=== PATIENT | male | born 1985 | race Caucasian/White ===

== ENCOUNTER 2016-09-26 21:27 | Emergency (ER) | payer OTHER ==
[2016-09-26] MEDS ORDERED: KEFLEX500 M1 PO (21:50)
[2016-09-26] MEDS ORDERED: IBUPROFEN800 M1 PO (21:50)
[2016-09-26] MEDS ORDERED: BACTRIM DS TAB1 EACH PO (21:50)
--- NOTE | 2016-09-26 21:50 | ED SKIN/ALLERGY COMPLAINT ---
History of Present Illness General Chief Complaint: Skin Rash/ Abcess Stated Complaint: ABSCESS TO RIGHT GROIN AREA PER PT Source: patient, old records Exam Limitations: no limitations Vital Signs & Intake/Output Vital Signs & Intake/Output Vital Signs Date Time Temp Pulse Resp B/P B/P Pulse O2 O2 Flow FiO2 Mean Ox Delivery Rate 09/26 2146 97.0 92 22 153/64 97 Allergies Coded Allergies: erythromycin base (RASH 09/26/16) Reconcile Medications Cephalexin (Keflex) 500 MG CAPSULE 1 CAP PO TID ABSCESS Ibuprofen 800 MG TABLET 1 TAB PO TID PRN PAIN Sulfamethoxazole/Trimethoprim (Bactrim Ds Tablet) 800 MG-160 MG TABLET 1 TAB PO BID ABSCESS Triage Note: PER PT CYST IN GROIN, PER PT SAW UROLOGIST AND IT IS DRAINING BUT VERY PAINFUL. PER PT DRAINING PUS. Triage Nurses Notes Reviewed? yes Onset: Abrupt Duration: day(s): (1), better, constant Timing: recent history Severity: mild, moderate Severity Numbers: 4 Location: genitalia Possible Factors: no cause identified No Modifying Factors: none Associated Symptoms: DENIES HPI: 31-year-old male with no medical history presents emergency room complaining of a "cyst" to his right groin that he's had for the past one day that has been draining. He states he's had a history of a intermittent cyst to the same exact spot over the past several weeks for which she was seen by urologist and was told it would need to be drained if it got bigger. He states that it went away up until today. He denies fever chills dysuria urgency. He denies noting any hernia or swelling to his scrotum no testicular pain. He denies any other rashes or abscesses to his skin no history of sexual transmitted disease he is not taken anything for his symptoms. No modifying factors or associated symptoms otherwise. (JI SOLITARIO) Past History Travel History Traveled to [place] past 21 day No Medical History Any Pertinent Medical History? none Surgical History Surgical History: none Family History Hx Contributory? No (JI SOLITARIO) Review of Systems Review of Systems Constitutional: Reports: see HPI. All Other Systems: Reviewed and Negative Comments Review of systems: See HPI, All other systems negative. Constitutional, no chills no fever, no malaise HEENT: No visual changes no sore throat no congestion, no ear pain Cardiovascular: No chest pain , no palpitation , no orthopnea Skin: See HPI Respiratory: No dyspnea no cough no sputum no hemoptysis GI: No nausea no vomiting, no diarrhea, : No dysuria No hematuria, Muscle skeletal: No joint pain, no back pain, no neck pain, Neurologic: No numbness no headache Psych: No stress no depression,. Heme/endocrine: No bruising no bleeding Immunology: No lymphadenopathy (JI SOLITARIO) Physical Exam Physical Exam General Appearance: well developed/nourished, no apparent distress, alert, awake Comments: Well-developed well-nourished patient in no apparent distress. HEENT: Atraumatic, extraocular motion intact Neck: Supple, FROM Back: FROM Cardiovascular: Regular rate and rhythms no murmurs rubs or gallops, Respiratory: Chest nontender.There were no bony deformities, no asymmetry. No respiratory distress. Patient speaking in full complete sentences. Breath sounds clear to auscultation bilaterally: NO W/R/R Extremities: full range of motioN abdomen: Soft nontender no rebound or guardingn : There is a open inguinal groin, indurated no fluctuance minimal tenderness to palpation no overlying erythema the rest of the external genitalia are within normal limits Neuro: awake, alert, and oriented to person, place and time. There were no obvious focal neurologic abnormalities. Skin: Warm & dry;No appreciable rash on exposed skin Psych: Mood affect normal, normal memory normal judgment. (JI SOLITARIO) Progress Differential Diagnosis: abscess/cellulitis, contact dermatitis, drug reaction, shingles, syphilis/gonococcemia Plan of Care: Orders Procedure Date/time Status TRUNK AREA CULTURE 09/27 2147 Active Microbiology 09/26 2149 TRUNK: Culture & Sensitivity - RECD 09/26 2149 TRUNK: Gram Stain - RECD Cultures were sent of the already draining wound I advised he follow-up with his urologist prescription for Keflex Bactrim ibuprofen provided answered all their questions see feels comfortable with plan (JI SOLITARIO) Departure Departure Time of Disposition: 2147 Disposition: HOME OR SELF CARE Condition: Stable Clinical Impression Primary Impression: Skin abscess Additional Instructions: KEFLEX AND BACTRIM DIRECTED, SITZ BATHS WITH EPSON SALT. FOLLOW UP WITH YOUR UROLOGIST. IBUPROFEN DIRECTED. RETURN IF YOUR SYMPTOMS WORSEN OR YOU HAVE ANY OTHER CONCERNS Departure Forms: Customer Survey General Discharge Information Prescriptions: Current Visit Scripts Sulfamethoxazole/Trimethoprim (Bactrim Ds Tablet) 1 TAB PO BID #14 TAB Cephalexin (Keflex) 1 CAP PO TID #21 CAP Ibuprofen 1 TAB PO TID PRN PAIN #30 TAB (JI SOLITARIO) PA/HUB CUTTER Co-Sign Statement Statement: ED Attending supervision documentation- [] I saw and evaluated the patient. I have also reviewed all the pertinent lab results and diagnostic results. I agree with the findings and the plan of care as documented in the PA's/HUB CUTTER's documentation. x I have reviewed the ED Record and agree with the PA's/HUB CUTTER's documentation. [] Additions or exceptions (if any) to the PAs/HUB CUTTER's note and plan are summarized below: [] (MARKY MURCIA,AROLDO)
== END 2016-09-26 22:03 ==
LOC: ERH 21:27
DX: L02.214 Cutaneous abscess of groin (principal)
CPT/HCPCS: 87070

== ENCOUNTER 2017-12-28 14:35 | Emergency (ER) | payer SELFPAY ==
[~2017-12-28] VITALS: Ht 172.7 cm; Wt 63.5 kg
[~2017-12-28 14:35] MED LIST: BACTRIM DS TAB1 EACH PO; IBUPROFEN800 M1 PO; KEFLEX500 M1 PO
[2017-12-28 14:38] VITALS: BP 124/78
[2017-12-28] MEDS ORDERED: PERCOCET 5-3251 EACH PO (15:16)
[2017-12-28] MEDS ORDERED: AUGMENTIN 875-1 EACH PO (15:16)
[2017-12-28] MEDS ORDERED: BACTRIM DS TAB1 EACH PO (15:16)
--- NOTE | 2017-12-28 15:16 | ED SKIN/ALLERGY COMPLAINT ---
History of Present Illness General Chief Complaint: Skin Rash/ Abcess Stated Complaint: ? ABCESS Source: patient, family Exam Limitations: no limitations Vital Signs & Intake/Output Vital Signs & Intake/Output Vital Signs Date Time Temp Pulse Resp B/P B/P Pulse O2 O2 Flow FiO2 Mean Ox Delivery Rate 12/28 1531 Room Air 12/28 1438 97.8 80 18 124/78 100 Room Air Allergies Coded Allergies: erythromycin base (PROFUSE VOMITING, SWELLING, SICK 12/28/17) Reconcile Medications Amoxicillin/Potassium Clav (Augmentin 875-125 Tablet) 875 MG-125 MG TABLET 1 TAB PO BID abscess Oxycodone HCl/Acetaminophen (Percocet 5-325 MG Tablet) 5 MG-325 MG TABLET 1 TAB PO 4 TIMES/DAY PRN pain Sulfamethoxazole/Trimethoprim (Bactrim Ds Tablet) 800 MG-160 MG TABLET 1 TAB PO BID abscess Triage Note: PT STATES HE HAS AN ABCESS IN HIS GROIN RIGHT SIDE. Triage Nurses Notes Reviewed? yes Onset: Abrupt Duration: day(s): (2), constant, continues in ED, getting worse Timing: remote history Severity: mild, moderate Severity Numbers: 8 Location: genitalia (rt superior scrotum) Possible Factors: abscess No Modifying Factors: none HPI: 32-year-old male with no past medical history of sensory evaluation of a painful swollen area on his scrotum. Patient reports this isn't present for 2 or 3 days and seems be getting worse. He states that a large amount of purulent discharge came from the area today which prompted him to come in. He denies any trauma to the area. He denies any testicular pain or swelling. No penile discharge no frequency urgency or dysuria. No fevers no abdominal pain no nausea vomiting or diarrhea. Patient reports that several years ago he had a similar problem was seen by a urologist at [facility]. he is not a diabetic. (Srinivas Jacobsen) Past History Travel History Traveled to [place] past 21 day No Medical History Any Pertinent Medical History? see below for history Neurological: NONE EENT: NONE Cardiovascular: NONE Respiratory: NONE Gastrointestinal: NONE Hepatic: NONE Renal: NONE Musculoskeletal: NONE Psychiatric: NONE Endocrine: NONE Surgical History Surgical History: none Psychosocial History What is your primary language Bulgarian Tobacco Use: Current Daily Use Daily Tobacco Use Amount/Type: => 5 Cigarettes daily ETOH Use: occasional use Illicit Drug Use: marijuana Family History Hx Contributory? No (Srinivas Jacobsen) Review of Systems Review of Systems Constitutional: Reports: no symptoms. EENTM: Reports: no symptoms. Respiratory: Reports: no symptoms. Cardiovascular: Reports: no symptoms. GI: Reports: no symptoms. Genitourinary: Reports: no symptoms. Musculoskeletal: Reports: no symptoms. Skin: Reports: see HPI (abscess). Neurological/Psychological: Reports: no symptoms. Hematologic/Endocrine: Reports: no symptoms. Immunologic/Allergic: Reports: no symptoms. All Other Systems: Reviewed and Negative (Srinivas Jacobsen) Physical Exam Physical Exam General Appearance: well developed/nourished, no apparent distress, alert, awake , anxious Head: atraumatic, normal appearance Eyes: Bilateral: normal appearance, EOMI. Ears, Nose, Throat: hearing grossly normal Neck: normal inspection, supple, full range of motion Respiratory: normal breath sounds, chest non-tender, no respiratory distress, lungs clear Cardiovascular: regular rate/rhythm Gastrointestinal: soft, non-tender Back: normal inspection, normal range of motion Extremities: normal inspection, normal range of motion, no edema Neurologic/Psych: no motor/sensory deficits, awake, alert, oriented x 3, normal gait Skin: intact, normal color, warm/dry Skin Problem Location: rt superior scrotum Skin Problem Character: abcess Comments: Male genitalia: There is a 1.5 cm diameter area of induration located at the superior aspect of the right hemiscrotum. There is no testicular involvement. No testicular pain or swelling. No high riding or horizontal testicle. There is no surrounding erythema. There is a central open wound with a small amount of purulent/serosanguineous drainage. No focal fluctuant area. No inguinal lymph nodes. No penile lesions. No crepitus. No necrotic tissue (Srinivas Jacobsen) Progress Differential Diagnosis: abscess/cellulitis, scrotal abscess, cellulitis, Breann's gangrene, necrotizing fasciitis, testicular torsion Plan of Care: Orders Procedure Date/time Status EXTREMETIES CULTURE 12/28 1517 Active Microbiology 12/28 1514 EXTREMITIE: Culture & Sensitivity - RECD 12/28 1514 EXTREMITIE: Gram Stain - RECD Patient is here with a scrotal abscess. There does not appear to be any testicular involvement. Patient is afebrile appears clinically well he's not a diabetic. There is no crepitus. The areas cleaned with Betadine 1% lidocaine without epi was used for local pain control. 11 blade used to open the area of induration. Serosanguineous discharge was expressed. Culture was obtained. Sterile dressing applied. Patient was medicated with Percocet. He'll be covered with Augmentin and Bactrim. Discussed with patient about the importance of very close follow-up. Advised him to return to the emergency Department in 2 days or be seen by urology in 2 days. Apply warm compresses change dressing daily. Return immediately with worsening pain swelling fever or spreading redness or any other concerns. Patient understands the discharge instructions he agrees the plan (Srinivas Jacobsen) Departure Departure Disposition: HOME OR SELF CARE Condition: Stable Clinical Impression Primary Impression: Scrotal abscess Referrals: Ubaldo MURCIA,Vimal Valladares Additional Instructions: take both antibiotics for full course. apply warm compressess for 15-20 min every few hours. ibuprofen for pain and swelling. Percocet for severe pain only this may cause drowsiness or constipation. It is extremely important that this be followed up on very closely. Continue to follow-up with provided urologist this week. If you're unable to get an appointment for this week return to the emergency department in 2 or 3 days for wound check. Return sooner with spreading redness worsening swelling worsening pain fever or any other concern. Departure Forms: Customer Survey General Discharge Information Prescriptions: Current Visit Scripts Amoxicillin/Potassium Clav (Augmentin 875-125 Tablet) 1 TAB PO BID #20 TAB Sulfamethoxazole/Trimethoprim (Bactrim Ds Tablet) 1 TAB PO BID #20 TAB Oxycodone HCl/Acetaminophen (Percocet 5-325 MG Tablet) 1 TAB PO 4 TIMES/DAY PRN pain #10 TAB (Srinivas Jacobsen) PA/PATTERN CHAIN BUILDER Co-Sign Statement Statement: ED Attending supervision documentation- [] I saw and evaluated the patient. I have also reviewed all the pertinent lab results and diagnostic results. I agree with the findings and the plan of care as documented in the PA's/PATTERN CHAIN BUILDER's documentation. [X] I have reviewed the ED Record and agree with the PA's/PATTERN CHAIN BUILDER's documentation. [] Additions or exceptions (if any) to the PAs/PATTERN CHAIN BUILDER's note and plan are summarized below: [] (Stew MURCIA,Mook Yanez)
== END 2017-12-28 15:32 ==
LOC: ERH 14:35
DX: N49.2 Inflammatory disorders of scrotum (principal)
CPT/HCPCS: 87070; 87071